=== PATIENT | female | born 1985 | race Caucasian/White ===

== ENCOUNTER 2016-09-10 05:22 | Inpatient (IN) ==
[2016-09-10] MEDS ORDERED: LACTATED RINGERS 500 ML IV PRN (05:40)
[2016-09-10] MEDS ORDERED: MEPERIDINE 50 MG/1 ML VIAL IV PRN (05:40)
[2016-09-10] MEDS ORDERED: TERBUTALINE 1 MG/1 ML VIAL SUBCUT PRN (05:40)
[2016-09-10] MEDS ORDERED: ONDANSETRON 4 MG/2 ML VIAL IV PRN (05:40)
[2016-09-10] MEDS: LACTATED RINGERS 1,000 ML IV SCH ×2 (05:55→09:36)
[2016-09-10] MEDS ORDERED: OXYTOCIN/LR 20 UNIT/1,000 ML BAG IV SCH (06:00)
[2016-09-10 06:44] LABS: Basophils % 0.4 % (0.0-0.8); Eosinophils # 0.1 10*3/uL (0.0-0.87); Eosinophils % 1.2 % (0.00-10.9); Hematocrit 34.9 VOL% (35.7-47.0); Hemoglobin 11.9 GM/DL (12.0-16.0); Immature Granulocytes % 0.4 %; Immature Granulocytes Absolute 0.03 #; Lymphocytes # 1.4 10*3/uL (1.4-4.0); Mean Corpuscular HGB Conc 34.1 GM/DL (32-36); Mean Corpuscular Hemoglobin 30 PG (27-34); Mean Corpuscular Volume 87.9 FL (87-102); Mean Platelet Volume 11.5 FL (9.6-12.0); Monocytes # 0.5 10*3/uL (0.11-0.8); Platelet Count 157 T/CUMM (130-400); Red Blood Count 3.97 MC/CUMM (3.8-5.5); Red Cell Distribution Width 12.6 % (9.3-17.3); White Blood Count 8.1 T/CUMM (4-12)
[2016-09-10] MEDS ORDERED: PROMETHAZINE 25 MG/1 ML VIAL IM ONE (07:40)
[2016-09-10] MEDS ORDERED: CITRIC ACID/SODIUM CITRATE 30 ML UDCUP PO ONE (07:40)
[2016-09-10] MEDS ORDERED: FAMOTIDINE 20 MG/2 ML VIAL IV ONE (07:40)
[2016-09-10] MEDS ORDERED: diphenhydrAMINE 50 MG/1 ML VIAL IV PRN (07:40)
[2016-09-10] MEDS ORDERED: fentaNYL 2 MCG/ROPIV 0.2% EPID 150 ML EPIDURAL SCH (07:40)
[2016-09-10 08:07] LABS: Barbiturates Screen,Urine Negative (Negative); Benzodiazepines Screen,Urine Negative (Negative); Cannabinoid Screen,Urine Negative (Negative); Opiate Screen,Urine Negative (Negative); Phencyclidine Screen,Urine Negative (Negative)
[2016-09-10] MEDS ORDERED: LIDOCAINE 1% 50 ML VIAL ONE (08:22)
[2016-09-10] MEDS ORDERED: miSOPROStol 200 MCG TABLET ONE (08:22)
[2016-09-10] MEDS ORDERED: ePHEDrine 50 MG/ML AMP ONE (08:22)
--- NOTE | 2016-09-10 09:33 | OB/GYN History & Physical ---
History of Present Illness Chief complaint: In for elective induction of labor due to term History of present illness: Ms. Donovan is a 31 year old female who is a 3 para 1 living 1 AB 1. Her BARBARA is 09/17/2016 for an estimated gestational age of 39 weeks. The patient presents to the labor department for elective induction of labor due to term . The risk and benefits have been thoroughly discussed with this patient and significant other and plan of care has been discussed with Dr. Berg and all parties are in agreement with plan. The patient received her care through the [facility] and the [facility]. Her course was uneventful. The patient does report a prior history of substance abuse. She has had 1 previous vaginal delivery and that weighed 7 pounds and 15 ounces and she reported no complications with that . labs: She is a positive, rubella is immune, RPR is nonreactive, hepatitis B negative, HIV negative, and GBS culture negative. Home Medications Medication Instructions Recorded Confirmed Type Pnv No.95/Ferrous Fum/Folic AC 1 tablet PO DAILY 09/10/16 09/10/16 History [ Tablet] Allergies Allergy/AdvReac Type Severity Reaction Status Date / Time No Known Allergies Allergy Verified 09/10/16 05:38 12 point system: reviewed and no additional remarkable complaints except as stated Medical,Surgical,& Family Hx - Medical History Rheumatology: No history of;: Psoriasis, Sjogrens, Systemic Lupus Erythematosus Hematology: No history of: Blood Transfusion Reaction Other: No history of: Anesthesia Reactions, Anaphylaxis, Cancer, Eczema, HIV, Malignant Hyperthermia, MRSA, Vancomycin-Resistant Enterococci, Skin Problems, Miscellaneous Medical Problems - Surgical History Thoracic Surgeries: Patient denies;: Organ Transplant Neurologic Surgeries: Patient denies: Neurologic Surgery Reproductive Surgeries: Patient denies;: Genitourinary Surgery Orthopedic Surgeries: Surgical HX of;: Implanted Devices (ashok in left leg) - Family History Family History: Reports;: Family Heart Disease (mom), Family Hypertension (mom) Denies;: Family Anesthesia Reaction, Family Cancer, Family Hematology, Family Psychiatric Problems, Family Stroke, Additional Family History Comment Only: Family Diabetes (mom dad) - Social History Smoking Status: Former smoker Have you smoked in the last 12 months: Yes Frequency of Alcohol Use: None Type of Drug Use: Cocaine, Methamphetamine, Prescription Drug Abuse Marital Status: Single Lives With:: Significant Other Functional capacity: independent ambulation 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 General appearance: no acute distress - Antepartum / Post Antepartum Exam Cervix -Dilatation: 3 cm Effacement: 70% Station: -1 Rupture: Intact Presentation: Vertex Heart Rate: 140s Breast: bilateral: normal Abdomen obstetrics: Present: bowel sounds normal Vagina: Present: normal moisture Uterus exam: Present: normal size Adnexa: left: normal - Respiratory Respiratory exam: Present: clear to auscultation bilaterally - Cardiovascular Cardiovascular exam: Present: regular rate and rhythm - GI/Abdominal GI/Abdominal exam: Present: normal bowel sounds, soft - Extremities Exam Extremities exam: Present: normal inspection - Neurological Exam Neurological exam: Present: alert, oriented X3 - Psychiatric Psychiatric exam: Present: normal affect, normal mood - Skin Skin exam: Present: normal color, warm (0398) Results - Labs CBC & BMP: 09/10/16 05:56
--- NOTE | 2016-09-10 13:10 | Anesthesia Post-Op ---
Anesthesia Post OP - Post Ansesthetic Evaluation Patient seen in post op: Yes Resp: within normal limits CV: within normal limits Mental: within normal limits Temp: within normal limits [id number]: within normal limits Nausea and Vomiting: within normal limits Pain: within normal limits
[2016-09-10 14:05] LABS: Apearance,Urine CLEAR (Clear); Bilirubin,Urine Negative (Negative); Blood, Urine Negative (Negative); Glucose,Urine (UA) Negative (Negative); Ketones,Urine Negative (Negative); Nitrite,Urine Negative (Negative); Protein,Urine Negative; RBC,Urine <1 /HPF (0-4); Urine Color Straw (Yellow); Urine Specific Gravity 1.006 (1.001-1.035); Urine Urobilinogen < 2.0 EU/DL (0.2-1.0); WBC,Urine <1 /HPF (0-6)
[2016-09-10] MEDS ORDERED: OXYTOCIN/LR 20 UNIT/1,000 ML BAG IV ONE (14:31)
[2016-09-10] MEDS: oxyCODONE/ACETAMINOPHEN 5-325 MG TABLET PO PRN ×2 (16:14→20:12)
[2016-09-10] MEDS: IBUPROFEN 800 MG TABLET PO PRN (16:14)
[2016-09-10] MEDS ORDERED: BENZOCAINE 20%/MENTHOL 0.5% SPRAY 56 GM CAN TOP PRN (19:57)
[2016-09-10] MEDS: DOCUSATE SODIUM 100 MG CAPSULE PO SCH (20:09)
[2016-09-11] MEDS: IBUPROFEN 800 MG TABLET PO PRN ×2 (03:56→13:19)
[2016-09-11 05:10] LABS: Basophils # 0.1 10*3/uL (0.0-0.2); Basophils % 0.6 % (0.0-0.8); Eosinophils # 0.2 10*3/uL (0.0-0.87); Eosinophils % 1.9 % (0.00-10.9); Hematocrit 33.8 VOL% (35.7-47.0); Hemoglobin 11.2 GM/DL (12.0-16.0); Immature Granulocytes % 0.2 %; Immature Granulocytes Absolute 0.02 #; Lymphocytes # 1.7 10*3/uL (1.4-4.0); Lymphocytes % 19.2 % (21.3-54.2); Mean Corpuscular HGB Conc 33.1 GM/DL (32-36); Mean Corpuscular Hemoglobin 30 PG (27-34); Mean Corpuscular Volume 90.9 FL (87-102); Mean Platelet Volume 11.6 FL (9.6-12.0); Monocytes # 0.4 10*3/uL (0.11-0.8); Monocytes % 4.8 % (1.7-12.7); Neutrophils # 6.3 10*3/uL (1.4-7.4); Neutrophils % 73.3 % (38.7-73.9); Platelet Count 137 T/CUMM (130-400); Red Blood Count 3.72 MC/CUMM (3.8-5.5); Red Cell Distribution Width 12.6 % (9.3-17.3); White Blood Count 8.6 T/CUMM (4-12)
[2016-09-11] MEDS: oxyCODONE/ACETAMINOPHEN 5-325 MG TABLET PO PRN ×3 (09:00→18:59)
[2016-09-11] MEDS: DOCUSATE SODIUM 100 MG CAPSULE PO SCH ×2 (09:00→21:49)
--- NOTE | 2016-09-11 10:13 | OB/GYN Progress Note ---
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 Patient is bonding well with her infant. 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 - Constitutional Vitals: Vital Signs Temp Pulse Resp BP Pulse Ox 09/11/16 07:36 98 F 73 18 110/59 96 09/11/16 04:00 97.0 F L 66 18 99/57 98 09/11/16 02:00 18 09/11/16 00:00 97.3 F L 73 18 93/53 98 09/10/16 19:54 78 18 09/10/16 17:15 76 20 121/68 98 09/10/16 16:15 75 20 143/86 98 09/10/16 15:15 70 18 129/79 98 09/10/16 14:45 77 20 122/72 98 09/10/16 14:15 97.3 F L 77 20 114/70 98 General appearance: normal weight, no acute distress - Antepartum / Post Post Exam Breast: bilateral: normal Abdomen obstetrics: Present: bowel sounds normal Vagina: Present: normal moisture, discharge (Light lochia rubra) Uterus exam: Present: enlarged (Fundus firm and midline) Anus/Rectum: Present: normal perianal skin - Respiratory Respiratory exam: Present: clear to auscultation bilaterally - Cardiovascular Cardiovascular exam: Present: regular rate and rhythm - GI/Abdominal GI/Abdominal exam: Present: normal bowel sounds, soft - Extremities Exam Extremities exam: Present: normal inspection - Neurological Exam Neurological exam: Present: alert, oriented X3 - Psychiatric Psychiatric exam: Present: normal affect, normal mood - Skin Skin exam: Present: normal color, warm Results - Labs CBC & BMP: 09/11/16 04:35
[2016-09-12] MEDS: IBUPROFEN 800 MG TABLET PO PRN ×2 (03:50→11:50)
[2016-09-12] MEDS: oxyCODONE/ACETAMINOPHEN 5-325 MG TABLET PO PRN ×3 (03:50→11:49)
[2016-09-12 07:35] VITALS: BP 111/70
[2016-09-12] MEDS: DOCUSATE SODIUM 100 MG CAPSULE PO SCH (08:42)
[2016-09-12] MEDS ORDERED: DIPH/TET/ACEL PERT BOOSTER VACCINE 0.5 ML VIAL IM ONE (11:50)
--- NOTE | 2016-09-12 13:48 | Discharge Summary ---
Hospital Course - Hospital Course Hospital Course: day #2 Status post vaginal Patient is ambulating well, voiding well, passing bowel movements. Lungs are clear cardiac exam benign breast without masses Uterus is nice and firm bleeding bleeding is minimal Extremities well normal limits neurologic grossly intact Assessment and plan Discharge today follow up in our office in approximately 6 weeks. Specialty Discharge - Follow Up or Referrals Follow up with: Elizabeth Berg MD [Primary Care Provider] - 10/21/16 10:00 am (6 WEEKS ) Discharge Plan - Discharge Data Disposition: Disch To Home/Self Care Discharge Diet: advance to your usual diet Activity: resume usual activities as tolerated Hygiene: may shower Weight Bearing at Discharge: weight bear as tolerated Driving: no restrictions - Discharge Medications New Ibuprofen Tab [Motrin Tab] 800 mg PO Q8H PRN #30 tablet PRN Reason: Pain Mild To Moderate (1-7) oxyCODONE/ACETAMINOPHEN 5-325 [Percocet 5-325] 1 tablet PO Q4H PRN #20 tablet PRN Reason: Pain Moderate (4-7) No Action Pnv No.95/Ferrous Fum/Folic AC [ Tablet] 1 tablet PO DAILY - Follow Up or Referral Follow Up: Elizabeth Berg MD [Primary Care Provider] - 10/21/16 10:00 am (6 WEEKS ) - Forms/Instructions Instructions: Perineal Care (DC), Vaginal Delivery (DC), Bleeding (DC) Exam - Constitutional Vitals: Period Temp Pulse Resp BP Sys/Sagastume Pulse Ox Last 24 Hr 97 F-98.5 F 69-82 18-20 111-127/62-74 97-100 DS: Provider Date of admission: 09/10/16 05:40 Primary care physician: Elizabeth Berg MD Attending physician on admission: Elizabeth Berg MD Consults: 09/10/16 05:40 Consult to Anesthesiology [CONS] Routine Consulting Provider: Reason for Anesthesiology: Epidural Consult Comment: Epidural for pain managment Discharging clinician: Elizabeth Berg MD
--- NOTE | 2016-11-07 21:34 | Operative Note ---
DATE OF ARRIVAL: 09/10/2016 This patient was admitted to the hospital for a delivery. The patient spontaneously delivered an 8 p ound 7 ounce infant. She was admitted in labor, subsequently progressed in stage 1 of labor 4 hours and 19 minutes. She delivered a viable male infant vaginally 8 pound 7 ounces. The Apgars were 8 at 1 minute and 9 at 5 minutes. There was a cord blood obtained as well as cord gas. The amount of bl ood loss was roughly about 300 cc. The mother and were stable and subsequently was transferr ed to the nursery in stable condition.
== END 2016-09-12 14:20 | disposition home or self-care (01) | DRG 775 ==
LOC: N.LDOUT 05:22 → N.LD 05:30 → N.OB 14:18
PROVIDERS: ADMIT Obstetrics & Gynecology; ATTEND Obstetrics & Gynecology